=== PATIENT | female | born 1995 | race Caucasian/White ===

== ENCOUNTER 2023-04-08 08:41 | Emergency (ER) | payer OTHER ==
[~2023-04-08] VITALS: Ht 165.1 cm; Wt 55.3 kg
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
[2023-04-08] MEDS ORDERED: ACETAMINOPHEN ES 500 MG TABLET ONE (09:14)
[2023-04-08] MEDS ORDERED: ACETAMINOPHEN ES 500 MG TABLET PO ONE (09:30)
--- NOTE | 2023-04-08 09:44 | NUR ---
URINE COLLECTED AND SENT
--- NOTE | 2023-04-08 11:23 | NUR ---
Patient discharged to home in stable condition. Written and verbal after care instructions given. Patient verbalizes understanding of instruction.
[2023-04-08 11:24] VITALS: BP 120/72
== END 2023-04-08 11:23 | disposition home or self-care (01) ==
LOC: ER 08:41
DX: S33.5XXA Sprain of ligaments of lumbar spine, initial encounter (principal); Z60.2 Problems related to living alone; V89.2XXA Person injured in unspecified motor-vehicle accident, traffic, initial encounter; Y93.89 Activity, other specified; Y92.89 Other specified places as the place of occurrence of the external cause; Y99.8 Other external cause status
CPT/HCPCS: 70450-TC; 72131-TC; 84703-TC